=== PATIENT | female | born 1930 | race Hispanic/Latino ===

== ENCOUNTER → 2017-04-17 | Outpatient (CLI) | payer MEDICARE, OTHER ==
[~2017-04-17] MED LIST: AMLODIPINE BESY10 MG PO; AUGMENTIN 500-1 EACH PO; CARBAMAZEPINE200 MG PO; DIOVAN80 MG PO; IOPAMIDOL 370 MG/ML 200 ML INFUS..BTL INJ ONE; LIDOCAINE700 MG; NEXIUM40 MG; SODIUM CHLORIDE 0.9% 50ML 50 ML ONE; ULTRAM50 MG PO; ZOFRAN ODT4 MG PO
[2017-04-17 10:33] LABS: BLOOD UREA NITROGEN 17 mg/dL (7-26); BUN/CREATININE RATIO 24 (6-25); CREATININE, SERUM 0.72 mg/dL (0.57-1.11); EST GLOMERULAR FILTRATION RATE > 60 ML/MIN (60-)
--- NOTE | 2017-04-17 15:34 | Diagnostic Imaging Report ---
History: Neck pain Comparison studies: None Technique: Sagittal T1, T2 and IR, axial T2 and axial gradient echo Intravenous contrast: None Findings: Alignment: Straightening of the normal lordosis. No scoliosis. Cervicomedullary junction: Mild degenerative changes of the atlantoaxial joint. Patent foramen magnum. Soft tissues: No T2 hyperintense paraspinal inflammatory changes. Partially visualized bilateral pleural effusions Spinal cord: Normal in size and signal from the foramen magnum through T4 Surgical changes with posterior decompression and fusion spanning from C3 through C6 Vertebrae: Normal in height and signal intensity. No fractures, infection or neoplasm. Degenerative changes: Disc degeneration with loss of T2 signal and decreased intervertebral space from C3 through T1 C2-C3: Patent canal and foramina C3-C4: Left uncinate process hypertrophy and facet hypertrophy results in mild left foraminal narrowing C4-C5: Patent canal and foramina C5-C6: Right uncinate process hypertrophy and facet hypertrophy results in moderate right foraminal narrowing C6-C7: Bilateral uncinate process hypertrophy and facet hypertrophy results in moderate right and mild left foraminal C7-T1: No abnormalities. IMPRESSION: 1. Surgical changes at the cervical spine without areas of complication. 2. Moderate degenerative foraminal narrowing at C5-6 on the right and C6-7 bilaterally. Other degenerative changes as described above. Signed by: DR Jamal Fulton M.D. on 04/17/2017 3:30 PM
--- NOTE | 2017-04-18 13:21 | Diagnostic Imaging Report ---
PROCEDURE:CT CHEST WITH CONTRAST COMPARISON:CT chest 11/25/14, chest x-ray 06/28/16 INDICATIONS:Lung cancer TECHNIQUE: Axial CT images of the chest were obtained after the intravenous administration of 100 cc of nonionic contrast. Coronal and sagittal reformations were made available for review. RADIATION DOSE: Total DLP: 448.7 mGy*cm Estimated effective dose: (DLP x 0.014 x size factor) mSv FINDINGS: Lungs: As suspected on chest x-ray, there are numerous metastatic nodules throughout each lung, measuring up to 9 mm. The pulmonary interstitium is not thickened. Bilateral apical pleural-parenchymal thickening is stable. Pleura:Posterior layering right pleural effusion measures 1.4 cm. Left pleural effusion in the anterior and posterior chest measures 4.6 x 12.2 x 14.6 cm with enhancement of the visceral and parietal pleura consistent with loculation. The adjacent lung is atelectatic with areas of hypoattenuation suggestive underlying metastases. No pneumothorax. Lymph nodes: No enlarged axillary or supraclavicular lymph nodes. Mediastinal and hilar lymph nodes measure up to 10 mm. Thyroid/base of neck: Multiple subcentimeter thyroid nodules are present in each lobe. Heart \T\ Mediastinum:MediPort catheter terminates in the SVC. The heart is mildly enlarged. The main pulmonary artery measures 2.8 cm in diameter without filling defects. The ascending aorta measures 3.7 cm in diameter (previously, to 3.6 cm). No dissection. There is a small amount of fluid in the posterior pericardial recess. The esophagus is collapsed. Upper abdomen:The intrahepatic bile ducts are dilated but incompletely imaged. This was also present on previous exam. Low-attenuation lesion in the anterior aspect of the left lobe measures 10 mm and is stable and likely a cyst. Loculated fluid adjacent to the spleen measures 2.0 x 1.0 cm. A nodule in the right adrenal gland measures 10 mm and appears new. Left adrenal gland is normal. There are tiny hypodensities in each kidney which could be cysts. There is a small amount of perihepatic and perisplenic ascites. Musculoskeletal:There are postoperative changes of the lower cervical spine from laminectomy and fusion. The vertebral body heights are symmetric. There are no lytic lesions. A sclerotic, nondestructive lesion in the head of the left 10th rib is stable. Soft tissues: Calcification in the posterior and inferior left chest measures 5 mm and is incompletely imaged. CONCLUSION: 1. 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 No significant lymphadenopathy in the mediastinum suggest metastasis. 2. Possible new right adrenal nodule could represent metastasis. 3. Loculated left pleural effusion, likely chronic, with atelectasis of the overlying lung. Small posterior right pleural effusion. 4. Ascending aortic ectasia. Mild cardiomegaly. 5. Dilated intrahepatic bile ducts of uncertain chronicity. 6. Small amount of perihepatic ascites. Dictated by: Willis Viera M.D. on 04/18/2017 at 13:21 Electronically approved by: Willis Viera M.D. on 04/18/2017 at 13:21
== END ==
LOC: MRI 09:01
PROVIDERS: ATTEND Emergency Medicine
DX: C34.92 Malignant neoplasm of unspecified part of left bronchus or lung (principal); G89.29 Other chronic pain
CPT/HCPCS: 36415; 71260; 72141; 82565; 84520; Q9967